=== PATIENT | male | born 1995 | race Two or more races ===

== ENCOUNTER 2021-03-15 02:57 | Emergency (ER) | payer OTHER ==
[~2021-03-15] VITALS: Ht 165.1 cm; Wt 81.6 kg
[2021-03-15 04:35] VITALS: BP 143/82
[2021-03-15] MEDS ORDERED: IBUPROFEN 800 MG TAB PO ONE (05:00)
[2021-03-15] MEDS ORDERED: ACETAMINOPHEN 500 MG TAB PO ONE (05:00)
== END 2021-03-15 07:25 | disposition home or self-care (01) ==
LOC: ER 02:57
DX: S33.5XXA Sprain of ligaments of lumbar spine, initial encounter (principal); M54.16 Radiculopathy, lumbar region; M62.830 Muscle spasm of back; X58.XXXA Exposure to other specified factors, initial encounter; Y93.89 Activity, other specified; Y92.89 Other specified places as the place of occurrence of the external cause; Y99.0 Civilian activity done for income or pay
CPT/HCPCS: 72100